=== PATIENT | male | born 1960 | race Caucasian/White ===

== ENCOUNTER → 2018-01-04 | Day surgery (SDC) | payer MEDICARE ==
[2017-12-31 14:26] LABS: BASOPHILS # (AUTO) 0.1 (0.0-0.1); BASOPHILS % 0.8 % (0.0-1.0); EOSINOPHILS # (AUTO) 0.4 (0.0-0.4); EOSINOPHILS % 5.8 % (0.0-6.0); HEMOGLOBIN 11.7 g/dL (14.0-18.0); LYMPHOCYTES # (AUTO) 1.6 (1.0-3.2); LYMPHOCYTES % 27.3 % (18.0-39.1); MEAN CORPUSCULAR HGB CONC 33.4 g/dL (31-35); MEAN CORPUSCULAR VOLUME 86.8 fL (81-99); MONOCYTES # (AUTO) 0.5 (0.2-0.8); MONOCYTES % 7.7 % (4.4-11.3); NEUTROPHILS # (AUTO) 3.5 (2.1-6.9); NEUTROPHILS % 57.9 % (38.7-80.0); PLATELET COUNT 157 x10e3/uL (140-360); RED BLOOD COUNT 4.03 x10e6/uL (4.3-5.7); RED CELL DISTRIBUTION WIDTH 14.3 % (11.7-14.4)
[~2018-01-04] MED LIST: ALLOPURINOL300 MG PO; ALPRAZOLAM0.5 MG PO; AMLODIPINE BESY10 MG PO; ATENOLOL50 MG PO; FUROSEMIDE40 MG PO; GLIPIZIDE5 MG PO; HYDROCODON-ACE1 EAC4; INSULIN REGULAR, HUMAN 100 UNIT/1 ML 3ML VIAL ONE; LEVOTHYROXINE50 MCG PO; LISINOPRIL2.5 MG PO; METFORMIN HCL1000 MG PO; MIDAZOLAM HCL 2 MG/2 ML VIAL ONE; POTASSIUM CHLO20 ME1 PO; PRAVASTATIN SOD40 MG PO; PROPOFOL IV EMULSION 10 MG/ML 20 ML VIAL ONE; TYLENOL WITH C1 EACH PO; VERAPAMIL ER240 MG PO; WARFARIN SODIUM4 MG PO
[2018-01-04 06:14] LABS: INR 1.1; PARTIAL THROMBOPLASTIN TIME 24.4 seconds (23.8-35.5); PROTHROMBIN TIME 13.4 seconds (11.9-14.5)
== END | disposition home or self-care (01) ==
LOC: OR 05:03
PROVIDERS: ATTEND Internal Medicine Gastroenterology
DX: Z09 Encounter for follow-up examination after completed treatment for conditions other than malignant neoplasm (principal); K64.8 Other hemorrhoids; E11.9 Type 2 diabetes mellitus without complications; E03.9 Hypothyroidism, unspecified; I10 Essential (primary) hypertension; I25.10 Atherosclerotic heart disease of native coronary artery without angina pectoris; I49.9 Cardiac arrhythmia, unspecified; E66.3 Overweight; Z72.0 Tobacco use; Z01.810 Encounter for preprocedural cardiovascular examination; Z01.812 Encounter for preprocedural laboratory examination; Z79.84 Long term (current) use of oral hypoglycemic drugs; Z79.01 Long term (current) use of anticoagulants; Z68.27 Body mass index [BMI] 27.0-27.9, adult; Z95.5 Presence of coronary angioplasty implant and graft
CPT/HCPCS: 36415 ×2; 45378; 82948; 85025; 85610; 85730; 93005; J2250

== ENCOUNTER 2018-02-19 18:22 | Emergency (ER) | payer MEDICARE ==
[~2018-02-19] VITALS: Ht 182.9 cm; Wt 90.7 kg
[~2018-02-19 18:22] MED LIST changes: -INSULIN REGULAR, HUMAN 100 UNIT/1 ML 3ML VIAL ONE; -MIDAZOLAM HCL 2 MG/2 ML VIAL ONE; -PROPOFOL IV EMULSION 10 MG/ML 20 ML VIAL ONE
[2018-02-19] MEDS ORDERED: HYDROCODONE/APAP 10MG-325MG TAB PO ONE (19:15)
== END 2018-02-19 21:01 | disposition home or self-care (01) ==
LOC: ER 18:22
DX: M79.604 Pain in right leg (principal); R25.2 Cramp and spasm; Z86.718 Personal history of other venous thrombosis and embolism
CPT/HCPCS: 93971; 99284

== ENCOUNTER 2019-09-22 18:50 | Emergency (ER) | payer MEDICARE ==
[~2019-09-22] VITALS: Ht 368.3 cm; Wt 90.7 kg
[2019-09-22] MEDS ORDERED: IBUPROFEN 600 MG TAB PO STA (19:18)
[2019-09-22] MEDS ORDERED: PIPER-TAZ 3.375 GM 50 ML IV STA (19:18)
[2019-09-22] MEDS ORDERED: SODIUM CHLORIDE 0.9% 500ML 500 ML IV STA (19:18)
[2019-09-22 19:46] LABS: ALANINE AMINOTRANSFERASE 10 IU/L (0-55); ALBUMIN 3.3 g/dL (3.5-5.0); ALBUMIN/GLOBULIN RATIO 0.9 (0.8-2.0); ALKALINE PHOSPHATASE 67 IU/L (40-150); ANION GAP 13.3 mmol/L (8-16); BLOOD UREA NITROGEN 17 mg/dL (7-26); BUN/CREATININE RATIO 15 (6-25); CARBON DIOXIDE 24 mmol/L (22-29); CHLORIDE 102 mmol/L (98-107); EST GLOMERULAR FILTRATION RATE > 60 ML/MIN (60-); GLUCOSE 127 mg/dL (74-118); POTASSIUM 4.3 mmol/L (3.5-5.1); SODIUM 135 mmol/L (136-145)
[2019-09-22 20:29] LABS: BASOPHILS # (AUTO) 0.1 (0.0-0.1); BASOPHILS % 0.5 % (0.0-1.0); EOSINOPHILS # (AUTO) 0.1 (0.0-0.4); EOSINOPHILS % 0.7 % (0.0-6.0); HEMATOCRIT 33.3 % (38.2-49.6); HEMOGLOBIN 10.7 g/dL (14.0-18.0); LYMPHOCYTES # (AUTO) 1.5 (1.0-3.2); LYMPHOCYTES % 14.4 % (18.0-39.1); MEAN CORPUSCULAR HEMOGLOBIN 28.1 pg (28-32); MEAN CORPUSCULAR HGB CONC 32.1 g/dL (31-35); MEAN CORPUSCULAR VOLUME 87.4 fL (81-99); MONOCYTES # (AUTO) 0.8 (0.2-0.8); MONOCYTES % 7.5 % (4.4-11.3); NEUTROPHILS # (AUTO) 7.9 (2.1-6.9); NEUTROPHILS % 75.6 % (38.7-80.0); PLATELET COUNT 220 x10e3/uL (140-360); RED BLOOD COUNT 3.81 x10e6/uL (4.3-5.7); RED CELL DISTRIBUTION WIDTH 14.8 % (11.7-14.4)
--- NOTE | 2019-09-22 21:00 | Diagnostic Imaging Report ---
FOOT RIGHT COMPLETE - Multiple views HISTORY: ulcer COMPARISON: None available. FINDINGS: Bones: No acute displaced fracture. No evidence of osteomyelitis. Osseous alignment is within normal limits. Joints: Multilevel degenerative changes are seen in the foot. Soft tissues: Soft tissue edema. There is a small ultrasound of the spine. IMPRESSION: No evidence of osteomyelitis. Signed by: Gaetano Nolan MD on 09/22/2019 8:56 PM
== END 2019-09-22 21:37 | disposition home or self-care (01) ==
LOC: ER 18:50
DX: E11.621 Type 2 diabetes mellitus with foot ulcer (principal); L89.893 Pressure ulcer of other site, stage 3; I10 Essential (primary) hypertension; I50.9 Heart failure, unspecified; I48.91 Unspecified atrial fibrillation; I25.10 Atherosclerotic heart disease of native coronary artery without angina pectoris; E78.5 Hyperlipidemia, unspecified; F41.9 Anxiety disorder, unspecified; Z86.718 Personal history of other venous thrombosis and embolism
CPT/HCPCS: 36415; 73630; 80053; 83605; 85025; 87040; 99284; J2543; J7040

== ENCOUNTER 2019-11-15 20:43 | Emergency (ER) | payer MEDICARE ==
[~2019-11-15] VITALS: Ht 182.9 cm; Wt 81.6 kg
--- OUTSIDE RECORDS SUMMARY | 2019-11-15 20:46 | XMS REPORT ---
Author Author [facility] t Organization [facility] Address [address] [place] [address] Phone Unavailable Care Team Providers Care Director Data Processing Name Role Phone JAYASHREE LANE MD PCP Alesia BENNETT Attphys Unavailable Payers Payer Name Policy Type Policy Number Effective Date Expiration Date Rupal rudd [facility] [id number] 2008 00:00:00 [facility] [id number] 2008 00:00:00 [facility] Problems Condition Name Condition Details Condition Category Status Onset Date Resolution Date Last Treatment Date Treating Clinician Comments Source Cellulitis and abscess of lower extremity Cellulitis and abscess of leg Problem Active 2016-01-01 00:00:00 [facility] Allergies, Adverse Reactions, Alerts This patient has no known allergies or adverse reactions. Medications Ordered Medication Name Filled Medication Name Start Date Stop Da te Current Medication? Ordering Clinician Indication Dosage Frequency Signature (SIG) Comments Components Source Acetaminophen With Codeine (Tylenol With Codeine #3 Ta blet) 1 Each Tablet Acetaminophen With Codeine (Tylenol With Codeine #3 Tablet) 1 Each Tablet Yes 300 As Needed [facility] Allopurinol 300 Mg Tablet Allopurinol 300 Mg Tablet Yes 300 Daily [facility] Alprazolam 0.5 Mg Tablet Alprazolam 0.5 Mg Tablet Yes .5 Bedtime as needed [facility] Amlodipine Besylate 10 Mg Tablet Amlodipine Besylate 10 Mg Tablet Yes 10 Daily [facility] Atenolol 50 Mg Tablet Atenolol 50 Mg Tablet Yes 50 Daily [facility] Furosemide 40 Mg Tablet Furosemide 40 Mg Tablet Yes 40 Daily [facility] Glipizide 5 Mg Tablet Glipizide 5 Mg Tablet Yes 5 Twice A Day [facility] Levothyroxine Sodium 50 Mcg Tablet Levothyroxine Sodium 50 Mcg Tablet Yes 50 Daily [facility] Lisinopril 2.5 Mg Tablet Lisinopril 2.5 Mg Tablet Yes 2.5 Daily [facility] Metformin Hcl 1,000 Mg Tablet Metformin Hcl 1,000 Mg Tablet Yes 1000 Twice A Day [facility] Potassium Chloride 20 Meq Tab.er.prt Potassium Chloride 20 Meq Tab. er.prt Yes 20 Twice A Day [facility] Pravastatin Sodium 40 Mg Tablet Pravastatin Sodium 40 Mg Tablet Yes 40 Bedtime [facility] Warfarin Sodium 4 Mg Tablet Warfarin Sodium 4 Mg Tablet Yes 3 Daily [facility] Pravastatin Sodium 40 Mg Tablet, 40 Mg Oral Pravastati n Sodium 40 Mg Tablet, 40 Mg Oral 2018-01-04 00:00:00 No 40 Bedtime [facility] Hydrocodone Bit/Acetaminophen (Hydrocodon-Acetaminoph 7.5-750) 1 Each Tablet, Hydrocodone Bit/Acetaminophen (Hydrocodon-Acetaminoph 7.5-750) 1 Each Tablet, 2017 00:00:00 No Twice A Day as neede d [facility] Verapamil Hcl (Verapamil Er) 240 Mg Tabsr, 240 Mg Oral Verapamil Hcl (Verapamil Er) 240 Mg Tabsr, 240 Mg Oral 2017 00:00:00 No 240 Daily [facility] Potassium Chloride 20 Meq Tab.er.prt, 20 Meq Oral Pota ssium Chloride 20 Meq Tab.er.prt, 20 Meq Oral 2016-01-01 00:00:00 No 20 Twice A Day [facility] Procedures This patient has no known procedures. Encounters Start Date/Time End Date/Time Encounter Type Admission Type [facility] Care Department Encounter ID Source 2019-09-22 18:50:00 2019-09-22 21:37:00 Departed Emergency Room 1 ROS BENNETT [facility] [id number] [facility] 2018-02-19 18:22:00 2018-02-19 18:22:00 Registered Emergency Room [facility] [id number] [facility] 2018-01-04 05:03:00 2018-01-04 05:03:00 Registered Surgical Day Care [facility] [id number] [facility] Results Test Description Test Time Test Comments Results Result Comments Source FOOT RIGHT COMPLETE 2019-09-22 20:51:00 [place] [address] Patient Name: KATHARINE GARCIA MR #: [id number] : 1960 Age/Sex: 58/M Req #: [id number] Adm Physician: Ordered by: NOY DE LA CRUZ [facility] Report #: [id number] Location: ER Room/Bed: Procedure: [id number] DX/FOOT RIGHT COMPLETE Exam Date: 09/22/19 Exam Time: 1999 REPORT STATUS: Signed FOOT RIGHT COMPLETE - Multiple views HISTORY: ulcer COMPARISON: None available. FINDINGS: Bones: No acute displaced fracture. No evidence of osteomyelitis. Osseous alignment is within normal limits. Joints: Multilevel degenerative changes are seen in the foot. Soft tissues: Soft tissue edema. There is a small ultrasound of the spine. IMPRESSION: No evidence of osteomyelitis. Signed by: Gaetano Hughes MD on 09/22/2019 8:56 PM Dictated By: GAETANO HUGHES MD 54 Transcribed By: JERI on 09/22/192055 COPY TO: NOY DE LA CRUZ NP White Blood Count 2019-09-22 20:36:00 Test Item White Blood Count (test code = 6690-2) 10.38 4.8-10.8 [facility] [id number] 20:36:00* Test Item Value Reference Range Interpretation Comments Red Blood Count (test code = 789-8) 3.81 4.3-5.7 [facility]emoglobin2020-03-30 20:36:00* Test Item Value Reference Range Interpretation Comments Hemoglobin (test code = 45749-2) 10.7 14.0-18.0 [facility]Hematocrit2020-03-30 20:36:00* Test Item Value Reference Range Interpretation Comments Hematocrit (test code = 4544-3) 33.3 38.2-49.6 [facility]Mean Corpuscular [id number] 20:36:00* Test Item Value Reference Range Interpretation Comments Mean Corpuscular Volume (test code = 787-2) 87.4 81-99 [facility] Corpuscular Tjvzokzcas3907-94-90 20:36:00* Test Item Value Reference Range Interpretation Comments Mean Corpuscular Hemoglobin (test code = 785-6) 28.1 28-32 [facility] Corpuscular Hemoglobin Concent 2019-09-22 20:36:00* Test Item Value Reference Range Interpretation Comments Mean Corpuscular Hemoglobin Concent (test code = 786-4) 32.1 31-35 [facility] Cell Distribution [id number] 20:36:00* Test Item Value Reference Range Interpretation Comments Red Cell Distribution Width (test code = 71868-9) 14.8 11.7 -14.4 [facility] CenterPlatelet [id number] 20:36:00* Test Item Value Reference Range Interpretation Comments Platelet Count (test code = 777-3) 220 140-360 [facility] CenterNeutrophils (%) (Auto)2019-09-22 20:36:00 * Test Item Value Reference Range Interpretation Comments Neutrophils (%) (Auto) (test code = 42967-0) 75.6 38.7-80.0 [facility] CenterLymphocytes (%) (Auto)2019-09-22 20:36:00 * Test Item Value Reference Range Interpretation Comments Lymphocytes (%) (Auto) (test code = 736-9) 14.4 18.0-39.1 [facility] CenterMonocytes (%) (Auto)2019-09-22 20:36:00* Test Item Value Reference Range Interpretation Comments Monocytes (%) (Auto) (test code = 5905-5) 7.5 4.4-11.3 [facility] CenterEosinophils (%) (Auto)2019-09-22 20:36:00 * Test Item Value Reference Range Interpretation Comments Eosinophils (%) (Auto) (test code = 713-8) 0.7 0.0-6.0 [facility] CenterBasophils (%) (Auto)2019-09-22 20:36:00* Test Item Value Reference Range Interpretation Comments Basophils (%) (Auto) (test code = 706-2) 0.5 0.0-1.0 [facility] CenterIM GRANULOCYTES %2019-09-22 20:36:00* Test Item Value Reference Range Interpretation Comments IM GRANULOCYTES % (test code = IM GRANULOCYTES %) 1.3 0.0- 1.0 [facility] CenterNeutrophils # (Auto)2019-09-22 20:36:00* Test Item Value Reference Range Interpretation Comments Neutrophils # (Auto) (test code = 751-8) 7.9 2.1-6.9 [facility] CenterLymphocytes # (Auto)2019-09-22 20:36:00* Test Item Value Reference Range Interpretation Comments Lymphocytes # (Auto) (test code = 30053-9) 1.5 1.0-3.2 [facility] CenterMonocytes # (Auto)2019-09-22 20:36:00* Test Item Value Reference Range Interpretation Comments Monocytes # (Auto) (test code = 742-7) 0.8 0.2-0.8 [facility] CenterEosinophils # (Auto)2019-09-22 20:36:00* Test Item Value Reference Range Interpretation Comments Eosinophils # (Auto) (test code = 711-2) 0.1 0.0-0.4 [facility] CenterBasophils # (Auto)2019-09-22 20:36:00* Test Item Value Reference Range Interpretation Comments Basophils # (Auto) (test code = 704-7) 0.1 0.0-0.1 [facility] CenterAbsolute Immature Granulocyte (auto 2019-09-22 20:36:00* Test Item Value Reference Range Interpretation Comments Absolute Immature Granulocyte (auto (damián t code = Absolute Immature Granulocyte (auto) 0.14 0-0.1 [facility] [id number] 19:51:00* Test Item Value Reference Range Interpretation Comments Sodium Level (test code = 2951-2) 135 136-145 [facility] CenterPotassium Vdozw1047-85-09 19:51:00* Test Item Value Reference Range Interpretation Comments Potassium Level (test code = 2823-3) 4.3 3.5-5.1 [facility] CenterChloride [id number] 19:51:00* Test Item Value Reference Range Interpretation Comments Chloride Level (test code = 2075-0) 102 98-107 [facility] CenterCarbon Dioxide [id number] 19:51:00* Test Item Value Reference Range Interpretation Comments Carbon Dioxide Level (test code = 2028-9) 24 22-29 [facility] CenterAnion [id number] 19:51:00* Test Item Value Reference Range Interpretation Comments Anion Gap (test code = 80162-0) 13.3 8-16 [facility] CenterBlood Urea Jrfwfvpa7931-66-70 19:51:00* Test Item Value Reference Range Interpretation Comments Blood Urea Nitrogen (test code = 3094-0) 17 7-26 [facility] CenterCreatinine2020-03-30 19:51:00* Test Item Value Reference Range Interpretation Comments Creatinine (test code = 2160-0) 1.10 0.72-1.25 [facility] CenterBUN/Creatinine Soaga0690-30-34 19:51:00* Test Item Value Reference Range Interpretation Comments BUN/Creatinine Ratio (test code = 3097-3) 15 - [facility] CenterEstimat Glomerular Filtration Rate 2019-09-22 19:51:00* Test Item Value Reference Range Interpretation Comments Estimat Glomerular Filtration Rate (test code = 932469929) > 60 >60 Ranges were taken from the National Kidney Disease Education Program and the [facility] literature.Reference ranges:60 or greater: Sobgvr34-96 ( for 3 consecutive months): Chronic kidney disease 15 or less: Kidney failureHarlingen Medical CenterGlucose Ajmcb8373-10-21 19:51:00* Test Item Value Reference Range Interpretation Comments Glucose Level (test code = YVO0282) 127 74-118 [facility] CenterCalcium Ilmsk3928-54-97 19:51:00* Test Item Value Reference Range Interpretation Comments Calcium Level (test code = 56191-7) 9.0 8.4-10.2 [facility] CenterLactic Acid [id number] 19:51:00* Test Item Value Reference Range Interpretation Comments Lactic Acid Level (test code = Lactic Acid Level) 1.8 0.5- 2.0 [facility] CenterTotal Gzcmipyie6587-85-38 19:51:00* Test Item Value Reference Range Interpretation Comments Total Bilirubin (test code = 1975-2) 0.5 0.2-1.2 [facility] CenterAspartate Amino Transf (AST/SGOT) 2019-09-22 19:51:00* Test Item Value Reference Range Interpretation Comments Aspartate Amino Transf (AST/SGOT) (test code = Aspartate Amino Transf (AST/SGOT)) 9 5-34 [facility] CenterAlanine Aminotransferase (ALT/SGPT) 2019-09-22 19:51:00* Test Item Value Reference Range Interpretation Comments Alanine Aminotransferase (ALT/SGPT) (test code = 1742-6) 10 0-55 [facility] CenterTotal Ixeqvkw9945-33-51 19:51:00* Test Item Value Reference Range Interpretation Comments Total Protein (test code = 2885-2) 6.8 6.5-8.1 [facility] CenterAlbumin2020-03-30 19:51:00* Test Item Value Reference Range Interpretation Comments Albumin (test code = 1751-7) 3.3 3.5-5.0 [facility] CenterGlobulin2020-03-30 19:51:00* Test Item Value Reference Range Interpretation Comments Globulin (test code = 68320-4) 3.5 2.3-3.5 [facility] CenterAlbumin/Globulin [id number] 19:51:00 * Test Item Value Reference Range Interpretation Comments Albumin/Globulin Ratio (test code = 1759-0) 0.9 0.8-2.0 [facility] CenterAlkaline Bskmwejzeby4859-26-21 19:51:00* Test Item Value Reference Range Interpretation Comments Alkaline Phosphatase (test code = 6768-6) 67 40-150 [facility]
--- NOTE | 2019-11-15 21:02 | Emergency Department Note ---
History of Present Illnes History of Present Illness Chief Complaint: Extremity Trauma/Pain History of Present Illness This is a 58 year old male with h/o dm and dvt on coumadin who presents with c/o pain and swelling to rle particularly the calf area down to heel. pt also mentions he is out of his tylenol #3. Historian: Patient Arrival Mode: Car Onset (how long ago): week(s) (1.5) Location: rle Quality: pain and swelling Radiation: non-radiation Severity: moderate Onset quality: gradual Duration (how long): week(s) (1.5) Timing of current episode: constant Progression: unchanged Chronicity: recurrent Relieving factors: none Exacerbating factors: none Associated symptoms: denies other symptoms Treatments prior to arrival: none Past Medical/Family History Physician Review I have reviewed the patient's past medical and family history. Any updates have been documented here. Past Medical History Recent Fever: No Clinical Suspicion of Infectio: Yes New/Unexplained Change in Ment: No Past Medical History: Hypertension, Diabetes, CHF, A-Fib, Hypothyroidism, CAD, Anxiety, Hyperlipedemia, DVT/PE Other Medical History: PCI 2009 PVD CHRONIC LEG WOUND NEUROPATHY Past Surgical History: Cholecysctectomy, PCI, Hernia Repair Other Surgery: RIGHT HAND SURGERY hernia Social History Smoking Cessation: Former smoker Alcohol Use: Occasional Any Illegal Drug Use: No Family History Family history of heart diseas: No Other Last Tetanus: unk Review of Systems Review of Systems Constitutional: no symptoms EENTM: no symptoms Cardiovascular: no symptoms Respiratory: no symptoms Gastrointestinal: no symptoms Genitourinary: no symptoms Musculoskeletal: as per HPI Neurological: no symptoms Psychological: no symptoms Endocrine: no symptoms Hematological/Lymphatic: no symptoms Review of other systems All other systems reviewed and negative. Physical Exam Related Data Allergies: Coded Allergies: No Known Allergies (Unverified , 02/03/13) Triage Vital Signs Vital Signs Date Time Temp Pulse Resp B/P (MAP) Pulse Ox O2 Delivery O2 Flow Rate FiO2 11/15/19 20:51 97.9 72 20 128/61 100 Vital signs reviewed: Yes Physical Exam CONSTITUTIONAL Constitutional: well-developed, well-nourished HENT HENT: normocephalic, atraumatic, oropharynx clear/moist, nose normal HENT L/R: left ext ear normal, right ext ear normal EYES Eyes: PERRL, conjunctivae normal NECK Neck: ROM normal PULMONARY Pulmonary: effort normal, breath sounds normal CARDIOVASCULAR Cardiovascular: regular rhythm, heart sounds normal, capillary refill normal, normal rate GASTROINTESTINAL Abdominal: soft, nontender, bowel sounds normal GENITOURINARY Genitourinary: exam deferred SKIN Skin: warm, dry, other (callous to bottom of right foot, no wound or drainage at this time, also non pitting swelling to right lower extremity with mild calf tenderness) MUSCULOSKELETAL Musculoskeletal: edema (non pitting ro rle), tenderness (mild right calf tenderness), other (dorsalis pedis and posterior tibial pulses intact) NEUROLOGICAL Neurological: alert, oriented x 3, no gross motor or sensory deficits PSYCHOLOGICAL Psychological: mood/affect normal, judgement normal Results Laboratory Laboratory Laboratory Tests Test 11/15/19 21:05 Prothrombin Time 17.5 seconds (11.9-14.5) Prothromb Time International Ratio 1.34 Activated Partial Thromboplast Time 61.8 seconds (23.8-35.5) Lab results reviewed: Yes Laboratory comments sub therapeutic inr Diagnostics Tests Diagnostic test(s) reviewed: Yes Diagnostic comments venous doppler rle showed partial dvt of popliteal vein, appears to be chronic Critical Care Time Subsequent provider I assumed direction of critical care for this patient from another provider of my specialty. Assessment & Plan Assessment & Plan Final Impression: (1) DVT (deep venous thrombosis) Assessment & Plan pt with swelling and pain to rle particulary right calf to heel. pt/ptt, venous doppler ordered to eval for dvt, therapeutic anticoagulation pt's inr is sub therapeutic, pt to be discharged and instructed to take and extra dose of his coumadin tonight, pt is to call dr guerrero on to have inr checked again Depart Disposition: HOME, SELF-CARE Last Vital Signs Date Time Temp Pulse Resp B/P (MAP) Pulse Ox O2 Delivery O2 Flow Rate FiO2 11/15/19 20:51 97.9 72 20 128/61 100 Home Meds Reported Medications Acetaminophen With Codeine (TYLENOL WITH CODEINE #3 TABLET) 1 Each Tablet, 300 MG PO PRN, TAB 12/31/17 Pravastatin Sodium (PRAVASTATIN SODIUM) 40 Mg Tablet, 40 MG PO HS 12/31/17 Amlodipine Besylate (AMLODIPINE BESYLATE) 10 Mg Tablet, 10 MG PO DAILY, #30 TAB 01/01/16 Potassium Chloride (POTASSIUM CHLORIDE) 20 Meq Tab.er.prt, 20 MEQ PO BID 01/01/16 Lisinopril (LISINOPRIL) 2.5 Mg Tablet, 2.5 MG PO DAILY, #30 TAB 01/01/16 Metformin Hcl (METFORMIN HCL) 1,000 Mg Tablet, 1000 MG PO BID 02/04/13 Alprazolam (ALPRAZOLAM) 0.5 Mg Tablet, 0.5 MG PO HS PRN 02/04/13 Glipizide (GLIPIZIDE) 5 Mg Tablet, 5 MG PO BID 02/04/13 Allopurinol (ALLOPURINOL) 300 Mg Tablet, 300 MG PO DAILY 02/04/13 Warfarin Sodium (WARFARIN SODIUM) 4 Mg Tablet, 3 MG PO DAILY 02/04/13 Atenolol (ATENOLOL) 50 Mg Tablet, 50 MG PO DAILY 02/04/13 Levothyroxine Sodium (LEVOTHYROXINE SODIUM) 50 Mcg Tablet, 50 MCG PO DAILY 02/04/13 Furosemide (FUROSEMIDE) 40 Mg Tablet, 40 MG PO DAILY 02/04/13 LING DILLARD MD November 15, 2019 21:02
[2019-11-15 21:32] LABS: INR 1.34; PROTHROMBIN TIME 17.5 seconds (11.9-14.5)
[2019-11-15 21:33] LABS: PARTIAL THROMBOPLASTIN TIME 61.8 seconds (23.8-35.5)
[2019-11-15 23:25] VITALS: BP 117/61
== END 2019-11-15 23:32 | disposition home or self-care (01) ==
LOC: ER 20:43
DX: M79.661 Pain in right lower leg (principal); I82.431 Acute embolism and thrombosis of right popliteal vein; I10 Essential (primary) hypertension; E11.9 Type 2 diabetes mellitus without complications; E78.5 Hyperlipidemia, unspecified; I25.10 Atherosclerotic heart disease of native coronary artery without angina pectoris; F41.9 Anxiety disorder, unspecified
CPT/HCPCS: 36415; 85610; 85730; 93971; 99283

== ENCOUNTER 2021-02-27 12:53 | Emergency (ER) | payer MEDICARE ==
[~2021-02-27] VITALS: Ht 368.3 cm; Wt 81.6 kg
== END 2021-02-27 18:36 | disposition home or self-care (01) ==
LOC: ER 13:40
DX: I87.8 Other specified disorders of veins (principal); I10 Essential (primary) hypertension; E11.9 Type 2 diabetes mellitus without complications; E78.5 Hyperlipidemia, unspecified; I25.10 Atherosclerotic heart disease of native coronary artery without angina pectoris; F41.9 Anxiety disorder, unspecified; I50.9 Heart failure, unspecified; I48.91 Unspecified atrial fibrillation; E03.9 Hypothyroidism, unspecified; Z86.718 Personal history of other venous thrombosis and embolism
CPT/HCPCS: 99283

== ENCOUNTER → 2021-04-06 | Outpatient (CLI) | payer MEDICARE ==
[~2021-04-06] MED LIST changes: +IOPAMIDOL 370 MG/ML 200 ML INFUS..BTL INJ ONE; +SODIUM CHLORIDE 0.9% 100 ML ONE; +SODIUM CHLORIDE 0.9% 50ML 0 ML ONE
[2021-04-06 09:04] LABS: ANION GAP 14.7 mmol/L (8-16); CALCIUM 9.4 mg/dL (8.4-10.2); CREATININE, SERUM 0.87 mg/dL (0.72-1.25); POTASSIUM 4.7 mmol/L (3.5-5.1)
== END ==
LOC: CT 08:12
PROVIDERS: ATTEND Internal Medicine Interventional Cardiology
DX: I73.9 Peripheral vascular disease, unspecified (principal)
CPT/HCPCS: 36415; 75635; 80048; J7050; Q9967

== ENCOUNTER → 2025-01-01 | Outpatient (REF) | payer MEDICARE ==
[~2025-01-01] MED LIST changes: -IOPAMIDOL 370 MG/ML 200 ML INFUS..BTL INJ ONE; -SODIUM CHLORIDE 0.9% 100 ML ONE; -SODIUM CHLORIDE 0.9% 50ML 0 ML ONE
[2025-01-01 13:54] LABS: BASOPHILS % 0.1 % (0.0-1.0); EOSINOPHILS % 0.4 % (0.0-6.0); LYMPHOCYTES % 7.8 % (18.0-39.1); MONOCYTES % 7.9 % (4.4-11.3); NEUTROPHILS % 82.8 % (38.7-80.0); RED CELL DISTRIBUTION WIDTH 15.3 % (11.7-14.4)
[2025-01-01 14:20] LABS: EST GLOMERULAR FILTRATION RATE 33.0 ML/MIN (>=60)
== END ==
LOC: RAD 12:00 → EDSTATUS 01-06 12:00
PROVIDERS: ATTEND Urology
DX: N20.0 Calculus of kidney (principal); N21.0 Calculus in bladder; Z01.810 Encounter for preprocedural cardiovascular examination; Z01.812 Encounter for preprocedural laboratory examination; Z01.818 Encounter for other preprocedural examination
CPT/HCPCS: 36415; 71046; 80048; 85025; 93005

== ENCOUNTER 2025-01-05 21:36 | Inpatient (IN) | payer MEDICARE ==
[~2025-01-05] VITALS: Ht 182.9 cm; Wt 77.1 kg
[2025-01-05 21:40] VITALS: TEMP 97.5
[2025-01-05 22:37] LABS: BASOPHILS % 0.5 % (0.0-1.0); EOSINOPHILS % 1.6 % (0.0-6.0); LYMPHOCYTES % 21.2 % (18.0-39.1); MONOCYTES % 7.8 % (4.4-11.3); NEUTROPHILS % 66.0 % (38.7-80.0); RED CELL DISTRIBUTION WIDTH 15.5 % (11.7-14.4)
[2025-01-05 22:45] LABS: INR 1.58
[2025-01-05 22:54] LABS: EST GLOMERULAR FILTRATION RATE 41.0 ML/MIN (>=60)
[2025-01-06] VITALS (11 sets, daily range): BP systolic 92–138; BP diastolic 62–78; PULSE 57–75; RESP 15–18; TEMP 97.2–98.1; O2SAT 98–100
[2025-01-06 01:31] LABS: LEUKOCYTE ESTERASE ,URINE LARGE (NEGATIVE); PROTEIN,URINE DIPSTICK 2+ (NEGATIVE); URINE UROBILINOGEN 1 mg/dL (0.2 - 1)
[2025-01-06 01:46] LABS: WBC,URINE (MAN) >50 /HPF (0-5)
[2025-01-06 01:47] LABS: EPITHELIAL CELLS,URINE FEW /LPF
[2025-01-06] MEDS ORDERED: DEXTROSE 50% SYRINGE 50 ML IV PRN (02:00)
[2025-01-06] MEDS ORDERED: SODIUM CHLORIDE FLUSH 10 ML SYR INJ PRN (02:00)
[2025-01-06] MEDS ORDERED: ACETAMINOPHEN 325 MG TAB PO PRN (02:00)
[2025-01-06] MEDS ORDERED: ONDANSETRON HCL INJ 2MG/ML 2ML 2 MG/ML VIAL IV PRN (02:00)
[2025-01-06] MEDS ORDERED: ACETAMINOPHEN/CODEINE 300MG - 30MG TAB PO PRN (04:45)
[2025-01-06] MEDS ORDERED: ALPRAZOLAM 0.5 MG TAB PO PRN (04:45)
[2025-01-06] MEDS: FUROSEMIDE 40 MG TAB PO SCH (08:49)
[2025-01-06] MEDS: POTASSIUM CHLORIDE 20 MEQ TAB CR PO SCH (08:50)
[2025-01-06] MEDS: ATENOLOL 50 MG TAB PO SCH (08:50)
[2025-01-06] MEDS: ALLOPURINOL 300 MG TAB PO SCH (08:51)
[2025-01-06] MEDS: LEVOTHYROXINE SODIUM 50 MCG TAB PO SCH (08:51)
[2025-01-06] MEDS: AMLODIPINE BESYLATE 10 MG TAB PO SCH (08:51)
[2025-01-06] MEDS: GLIPIZIDE 5 MG TAB PO SCH (08:52)
[2025-01-06] MEDS: LISINOPRIL 2.5 MG TAB PO SCH (09:00)
[2025-01-06] MEDS: INSULIN REGULAR, HUMAN 100 UNIT/1 ML SQ SCH (09:01)
[2025-01-06] MEDS: PRAVASTATIN 20 MG TAB PO SCH (21:18)
[2025-01-07] VITALS (9 sets, daily range): BP systolic 92–106; BP diastolic 53–71; PULSE 56–60; RESP 16–18; TEMP 97.2–98.2; O2SAT 97–100
[2025-01-07 05:56] LABS: BASOPHILS % 0.6 % (0.0-1.0); EOSINOPHILS % 2.1 % (0.0-6.0); LYMPHOCYTES % 26.0 % (18.0-39.1); MONOCYTES % 7.1 % (4.4-11.3); NEUTROPHILS % 61.3 % (38.7-80.0); RED CELL DISTRIBUTION WIDTH 15.9 % (11.7-14.4)
[2025-01-07 06:27] LABS: EST GLOMERULAR FILTRATION RATE 40.0 ML/MIN (>=60)
[2025-01-07] MEDS: PHYTONADIONE 10 MG/ML AMP IV ONE (16:59)
[2025-01-08 04:00] VITALS: BP 105/68; PULSE 56; RESP 18; TEMP 97.8; O2SAT 100
[2025-01-08 07:24] LABS: BASOPHILS % 0.4 % (0.0-1.0); EOSINOPHILS % 2.1 % (0.0-6.0); LYMPHOCYTES % 25.9 % (18.0-39.1); MONOCYTES % 6.6 % (4.4-11.3); NEUTROPHILS % 61.6 % (38.7-80.0); RED CELL DISTRIBUTION WIDTH 15.9 % (11.7-14.4)
[2025-01-08 07:47] LABS: EST GLOMERULAR FILTRATION RATE 38.0 ML/MIN (>=60)
[2025-01-08 08:07] VITALS: BP 115/62; PULSE 64; RESP 18; TEMP 97.7; O2SAT 100
[2025-01-08 12:38] VITALS: BP 103/62; PULSE 62; RESP 18; TEMP 97.9; O2SAT 99
[2025-01-08 16:13] VITALS: BP 116/77; PULSE 96; RESP 18; TEMP 98; O2SAT 100
[2025-01-08 20:00] VITALS: BP 97/60; PULSE 59; RESP 18; TEMP 97.5; O2SAT 100
[2025-01-08 20:11] VITALS: BP 97/60; PULSE 59; RESP 15; TEMP 97.5; O2SAT 100
[2025-01-09] VITALS (7 sets, daily range): BP systolic 94–109; BP diastolic 55–66; PULSE 53–78; RESP 12–19; TEMP 97.5–98.7; O2SAT 97–100
[2025-01-09] MEDS: LEVOFLOXACIN 500MG/D5W 100ML 100 ML IV SCH (04:44)
[2025-01-09 06:23] LABS: BASOPHILS % 0.6 % (0.0-1.0); EOSINOPHILS % 2.0 % (0.0-6.0); LYMPHOCYTES % 22.3 % (18.0-39.1); MONOCYTES % 6.0 % (4.4-11.3); NEUTROPHILS % 65.4 % (38.7-80.0); RED CELL DISTRIBUTION WIDTH 16.0 % (11.7-14.4)
[2025-01-09 06:38] LABS: INR 1.02
[2025-01-09 06:50] LABS: EST GLOMERULAR FILTRATION RATE 36.0 ML/MIN (>=60)
[2025-01-09] MEDS ORDERED: LIDOCAINE HCL 2% LOCAL INJ 5 ML SDV VIAL INJ ONE (11:42)
[2025-01-09] MEDS ORDERED: MIDAZOLAM HCL 2 MG/2 ML VIAL ONE (11:42)
[2025-01-09] MEDS ORDERED: PROPOFOL IV EMULSION 10 MG/ML 20 ML VIAL ONE (11:42)
[2025-01-09] MEDS ORDERED: FENTANYL CITRATE/PF 100MCG/2 ML INJ ONE ×2 (11:42→12:54)
[2025-01-09] MEDS ORDERED: ETOMIDATE 40 MG/ 20ML VIAL IV ONE (12:21)
[2025-01-09] MEDS ORDERED: DEXAMETHASONE SOD PHOS INJ 4 MG/ML SDV ONE (12:28)
[2025-01-09] MEDS ORDERED: ONDANSETRON HCL INJ 2MG/ML 2ML 2 MG/ML VIAL ONE (12:28)
[2025-01-09] MEDS ORDERED: EPHEDRINE SULFATE INJ 50 MG/ML VIAL ONE (12:28)
[2025-01-09] MEDS ORDERED: GLYCOPYRROLATE INJ 0.2 MG/ML VIAL ONE ×2 (12:28→13:08)
[2025-01-09] MEDS ORDERED: CEFTRIAXONE 1 GM VIAL ONE (12:39)
[2025-01-09] MEDS ORDERED: GENTAMICIN SULFATE 40 MG/ML 2 ML VIAL ONE (12:43)
[2025-01-09] MEDS ORDERED: ROCURONIUM BROMIDE 1 ML IV ONE (12:51)
[2025-01-09] MEDS ORDERED: NEOSTIGMINE 1 MG/ML 10ML VIAL ONE (13:08)
[2025-01-10] VITALS (8 sets, daily range): BP systolic 93–115; BP diastolic 56–73; PULSE 61–87; RESP 16–20; TEMP 97.6–98.4; O2SAT 97–100
[2025-01-11] VITALS (8 sets, daily range): BP systolic 107–133; BP diastolic 64–81; PULSE 64–72; RESP 16–19; TEMP 98–98.9; O2SAT 98–100
[2025-01-11 05:55] LABS: BASOPHILS % 0.4 % (0.0-1.0); EOSINOPHILS % 1.0 % (0.0-6.0); LYMPHOCYTES % 16.2 % (18.0-39.1); MONOCYTES % 5.0 % (4.4-11.3); NEUTROPHILS % 75.4 % (38.7-80.0); RED CELL DISTRIBUTION WIDTH 16.5 % (11.7-14.4)
[2025-01-11 06:08] LABS: EST GLOMERULAR FILTRATION RATE 29.0 ML/MIN (>=60)
[2025-01-12] VITALS (7 sets, daily range): BP systolic 100–119; BP diastolic 55–68; PULSE 58–68; RESP 16–20; TEMP 97–98.1; O2SAT 98–100
[2025-01-12 06:05] LABS: BASOPHILS % 0.4 % (0.0-1.0); EOSINOPHILS % 0.4 % (0.0-6.0); LYMPHOCYTES % 7.6 % (18.0-39.1); MONOCYTES % 3.5 % (4.4-11.3); NEUTROPHILS % 87.0 % (38.7-80.0); RED CELL DISTRIBUTION WIDTH 16.3 % (11.7-14.4)
[2025-01-12 06:59] LABS: EST GLOMERULAR FILTRATION RATE 31.0 ML/MIN (>=60)
[2025-01-12] MEDS ORDERED: ONDANSETRON HCL 4 MG ORAL DISINTEGRATING TAB PO PRN (14:00)
[2025-01-12 16:40] LABS: EST GLOMERULAR FILTRATION RATE 29.0 ML/MIN (>=60)
[2025-01-13] VITALS (8 sets, daily range): BP systolic 82–125; BP diastolic 52–77; PULSE 60–73; RESP 16–20; TEMP 97–98.1; O2SAT 99–100
[2025-01-13 05:50] LABS: BASOPHILS % 0.2 % (0.0-1.0); EOSINOPHILS % 0.1 % (0.0-6.0); LYMPHOCYTES % 6.7 % (18.0-39.1); MONOCYTES % 2.3 % (4.4-11.3); NEUTROPHILS % 89.7 % (38.7-80.0); RED CELL DISTRIBUTION WIDTH 16.6 % (11.7-14.4)
[2025-01-13 06:33] LABS: EST GLOMERULAR FILTRATION RATE 27 ML/MIN (>=60)
[2025-01-13] MEDS ORDERED: PROPOFOL IV EMULSION 10 MG/ML 20 ML VIAL ONE (08:47)
[2025-01-13] MEDS ORDERED: FENTANYL CITRATE/PF 100MCG/2 ML INJ ONE (08:48)
[2025-01-13] MEDS ORDERED: MIDAZOLAM HCL 2 MG/2 ML VIAL ONE (08:48)
[2025-01-13] MEDS ORDERED: KETOROLAC TROMETHAMINE 30 MG/ML VIAL ONE (08:51)
[2025-01-13] MEDS ORDERED: SUCCINYLCHOLINE CHLORIDE 20 MG/ML 10ML VIAL ONE (08:51)
[2025-01-13] MEDS ORDERED: DEXAMETHASONE SOD PHOS INJ 4 MG/ML SDV ONE (08:51)
[2025-01-13] MEDS ORDERED: ONDANSETRON HCL INJ 2MG/ML 2ML 2 MG/ML VIAL ONE (08:51)
[2025-01-13] MEDS ORDERED: SODIUM CHLORIDE 0.9% 100 ML ONE (09:06)
[2025-01-13] MEDS ORDERED: SODIUM BICARBONATE 8.4% IV SCH (13:15)
[2025-01-13] MEDS ORDERED: DEXTROSE 5% IV SCH (13:15)
[2025-01-13] MEDS: LEVOFLOXACIN 500MG/D5W 100ML 100 ML IV SCH (14:27)
[2025-01-13] MEDS: SODIUM BICARBONATE 8.4% VIAL 150 ML in DEXTROSE 5% 1,000 ML IV SCH ×2 (14:30→16:45)
[2025-01-13] MEDS: LEVOFLOXACIN 250 MG TAB PO SCH (16:15)
[2025-01-13] MEDS ORDERED: SODIUM BICARBONATE 8.4% VIAL 150 ML in DEXTROSE 5% 1,000 ML IV SCH (16:45)
[2025-01-14 00:02] VITALS: BP 90/55; PULSE 58; RESP 17; TEMP 98.4; O2SAT 100
[2025-01-14 08:24] VITALS: BP 99/58; PULSE 58; RESP 19; TEMP 97.7; O2SAT 99
[2025-01-14 09:29] LABS: EST GLOMERULAR FILTRATION RATE 21.0 ML/MIN (>=60)
[2025-01-14 10:19] VITALS: BP 102/64; PULSE 62; RESP 19; TEMP 97.7; O2SAT 99
[2025-01-14 12:21] VITALS: BP 101/59; PULSE 64; RESP 19; TEMP 97.8; O2SAT 100
[2025-01-14] MEDS: SODIUM BICARBONATE 8.4% VIAL 150 ML in DEXTROSE 5% 1,000 ML IV SCH (14:36)
[2025-01-14 16:00] VITALS: BP 92/58; PULSE 57; RESP 18; TEMP 98; O2SAT 100
[2025-01-14 20:00] VITALS: BP 93/56; PULSE 45; RESP 17; TEMP 97.2; O2SAT 100
[2025-01-15] VITALS (7 sets, daily range): BP systolic 93–111; BP diastolic 56–73; PULSE 45–69; RESP 17–20; TEMP 97.2–98.5; O2SAT 98–100
[2025-01-15 08:38] LABS: BASOPHILS % 0.4 % (0.0-1.0); EOSINOPHILS % 0.4 % (0.0-6.0); LYMPHOCYTES % 20.8 % (18.0-39.1); MONOCYTES % 6.0 % (4.4-11.3); NEUTROPHILS % 72.0 % (38.7-80.0); RED CELL DISTRIBUTION WIDTH 16.9 % (11.7-14.4)
[2025-01-15 09:03] LABS: EST GLOMERULAR FILTRATION RATE 28.0 ML/MIN (>=60)
[2025-01-16 00:36] VITALS: BP 107/67; PULSE 62; RESP 16; TEMP 97.6; O2SAT 100
[2025-01-16 09:05] VITALS: BP 106/61; PULSE 61; RESP 19; TEMP 97; O2SAT 99
[2025-01-16 09:42] VITALS: BP 106/61; PULSE 61; RESP 19; TEMP 97; O2SAT 99
[2025-01-16 12:10] VITALS: BP 151/67; PULSE 70; RESP 19; TEMP 98; O2SAT 95
[2025-01-16 12:38] VITALS: BP 115/65; PULSE 62; RESP 19; TEMP 97.7; O2SAT 99
== END 2025-01-16 13:28 | DRG 698 ==
LOC: ER 21:49 → ERHOLD 01-06 01:56 → MED/SURG2 01-06 02:41
PROVIDERS: ADMIT Internal Medicine; ATTEND Internal Medicine
PROC: 0TCB8ZZ Extirpation of Matter from Bladder, Via Natural or Artificial Opening Endoscopic (ICD-10-PCS; 2025-01-09)
PROC: BT1D0ZZ Fluoroscopy of Right Kidney, Ureter and Bladder using High Osmolar Contrast (ICD-10-PCS; 2025-01-09)
PROC: 0TP98DZ Removal of Intraluminal Device from Ureter, Via Natural or Artificial Opening Endoscopic (ICD-10-PCS; principal; 2025-01-09 12:20)
PROC: 0WHR8YZ Insertion of Other Device into Genitourinary Tract, Via Natural or Artificial Opening Endoscopic (ICD-10-PCS; 2025-01-13)
PROC: BT140ZZ Fluoroscopy of Kidneys, Ureters and Bladder using High Osmolar Contrast (ICD-10-PCS; 2025-01-13)
PROC: 0T9B40Z Drainage of Bladder with Drainage Device, Percutaneous Endoscopic Approach (ICD-10-PCS; 2025-01-13)
PROC: BT101ZZ Fluoroscopy of Bladder using Low Osmolar Contrast (ICD-10-PCS; 2025-01-13)
DX: T83.518A Infection and inflammatory reaction due to other urinary catheter, initial encounter (principal); A41.9 Sepsis, unspecified organism; I13.0 Hypertensive heart and chronic kidney disease with heart failure and stage 1 through stage 4 chronic kidney disease, or unspecified chronic kidney disease; N17.9 Acute kidney failure, unspecified; Z16.24 Resistance to multiple antibiotics; N13.6 Pyonephrosis; N13.8 Other obstructive and reflux uropathy; T83.592A Infection and inflammatory reaction due to indwelling ureteral stent, initial encounter; R41.0 Disorientation, unspecified; I48.91 Unspecified atrial fibrillation; I50.9 Heart failure, unspecified; E03.9 Hypothyroidism, unspecified; I25.10 Atherosclerotic heart disease of native coronary artery without angina pectoris; F41.9 Anxiety disorder, unspecified; E11.51 Type 2 diabetes mellitus with diabetic peripheral angiopathy without gangrene; E11.40 Type 2 diabetes mellitus with diabetic neuropathy, unspecified; N21.0 Calculus in bladder; N40.1 Benign prostatic hyperplasia with lower urinary tract symptoms; R33.8 Other retention of urine; E11.22 Type 2 diabetes mellitus with diabetic chronic kidney disease; N18.32 Chronic kidney disease, stage 3b; D63.1 Anemia in chronic kidney disease; E78.5 Hyperlipidemia, unspecified; M19.90 Unspecified osteoarthritis, unspecified site; G47.00 Insomnia, unspecified; R53.1 Weakness; B96.1 Klebsiella pneumoniae [K. pneumoniae] as the cause of diseases classified elsewhere; B95.2 Enterococcus as the cause of diseases classified elsewhere; K21.9 Gastro-esophageal reflux disease without esophagitis; B96.89 Other specified bacterial agents as the cause of diseases classified elsewhere; N32.89 Other specified disorders of bladder; F03.90 Unspecified dementia, unspecified severity, without behavioral disturbance, psychotic disturbance, mood disturbance, and anxiety; N35.919 Unspecified urethral stricture, male, unspecified site; N25.89 Other disorders resulting from impaired renal tubular function; M10.9 Gout, unspecified; Q54.9 Hypospadias, unspecified; Z86.718 Personal history of other venous thrombosis and embolism; Z87.891 Personal history of nicotine dependence; Z79.890 Hormone replacement therapy; Z98.61 Coronary angioplasty status; Z79.01 Long term (current) use of anticoagulants; Z79.84 Long term (current) use of oral hypoglycemic drugs; Z91.199 Patient's noncompliance with other medical treatment and regimen due to unspecified reason
CPT/HCPCS: 36415; 70450; 74176; 74420; 76770; 80048; 80053; 81001; 82948; 83735; 85025; 85610; 85730; 87086; 87186; 88300; 94799; 96372; 99252; 99284; C1758; J0330; J0696; J1100; J1580; J1885; J1956; J2003; J2250; J2405; J2470; J2710; J3430; J7050; J7070